=== PATIENT | female | born 1965 | race Caucasian/White ===

== ENCOUNTER → 2025-06-16 | Outpatient (CLI) | payer BC, SELFPAY ==
--- NOTE | 2025-06-16 16:34 | XR_ITS ---
EXAMINATION: Cervical spine 3 views TECHNIQUE: AP lateral, and AP odontoid cervical spine 3 views Date and time: June 16, 2025, 1649 hours INDICATIONS: Neck pain months. FINDINGS: Straightening normal cervical lordosis Early degenerative disc disease C5-C6, C6-C7 No cervical fracture Intact odontoid IMPRESSION: Early degenerative disc disease C5-C6, C6-C7
--- NOTE | 2025-06-16 16:35 | XR_ITS ---
EXAMINATION: Lumbar spine 3 views TECHNIQUE: AP, lateral, coned lateral lower lumbar spine 3 views Date and time: June 16, 2025, 1652 hours INDICATIONS: Low back pain months. FINDINGS: Moderate osteopenia. Grade 1 anterolisthesis L4 on L5 No lumbar fracture Diffuse mild to moderate lumbar degenerative disc disease IMPRESSION: Diffuse mild to moderate lumbar degenerative disc disease
== END | disposition home or self-care (01) ==
PROVIDERS: PCP Physician Assistant; Referring Provider Orthopaedic Surgery; Visit Provider Orthopaedic Surgery
DX: M51.360 Other intervertebral disc degeneration, lumbar region with discogenic back pain only (principal); M50.322 Other cervical disc degeneration at C5-C6 level
CPT/HCPCS: 72040; 72100